=== PATIENT | female | born 1970 | race Caucasian/White ===

== ENCOUNTER 2022-06-30 08:50 | Emergency (ER) | payer OTHER ==
[2022-06-30] MEDS ORDERED: Ibuprofen 400 MG Tab PO ONE (09:13)
[2022-06-30] MEDS ORDERED: Acetaminophen 325 MG Tab PO ONE (09:13)
[2022-06-30] MEDS ORDERED: Diazepam 5 MG Tab PO ONE (09:13)
[2022-06-30] MEDS ORDERED: Lidocaine 5% 700 MG Patch TOP ONE (09:13)
== END 2022-06-30 10:15 | disposition home or self-care (01) ==
LOC: MW.ED 08:50
DX: M54.42 Lumbago with sciatica, left side (principal); E11.9 Type 2 diabetes mellitus without complications
CPT/HCPCS: 99283; A9270